=== PATIENT | female | born 1970 | race Hispanic/Latino ===

== ENCOUNTER 2021-03-20 16:42 | Emergency (ER) | payer OTHER, SELFPAY ==
[2021-03-20 16:56] VITALS: BP 151/95; PULSE 76; RESP 16; TEMP 36.4; O2SAT 99
--- NOTE | 2021-03-20 17:13 | ED.EAR ---
HPI - Ear Problem General Chief complaint: Ear Stated complaint: Bilateral Ear Pain History of Present Illness HPI Narrative: This is a 50 year that has been complaining of pain for bilateral ear pain and pressure.l Patient denies any nausea and or vomiting not dizziness. Patient states that she has been using afrin and allergy medication . Patient states she has been taking Benadryl as well. Patient has a headache. Related Data Home Medications Medication Instructions Recorded Confirmed amlodipine 10 mg PO DAILY 03/20/21 03/20/21 atorvastatin 20 mg PO DAILY 03/20/21 03/20/21 escitalopram oxalate 5 mg PO DAILY 03/20/21 03/20/21 hydrochlorothiazide 25 mg PO DAILY 03/20/21 03/20/21 Allergies Allergy/AdvReac Type Severity Reaction Status Date / Time No Known Allergies Allergy Mild Verified 03/20/21 16:49 Review of Systems Review of Systems: bilateral ear pain and pressure All systems reviewed & are unremarkable except as noted in HPI and below PMFSH Comments At time as signature, I have reviewed and agree with nursing past medical, social, surgical and family history. Please see nursing chart for further information. There is no relevant family history pertinent to the presenting complaint. Exam Narrative: GENERAL:Well-appearing, well-nourished, and in no acute distress. HEAD:Normocephalic, . EYES: PERRLA ENT: Nares clear, no rhinorrhea o bilateral ear fluid noted behind hear more in the left than the right the left is cloudy . Boggy turbinate noted in the nares CHEST: No respiratory distress. HEART: Regular rate and rhythm Normal peripheral pulses. EXTREMITIES: Normal range of motion. No edema. SKIN: Warm, dry, no rash. NEURO: No focal deficits. Alert and oriented x3. Course Vital Signs Vital signs: Vital Signs Temperature 97.6 F 03/20/21 16:56 Pulse Rate 76 03/20/21 16:56 Respiratory Rate 16 03/20/21 16:56 Blood Pressure 151/95 H 03/20/21 16:56 Pulse Oximetry 99 03/20/21 16:56 Temperature 97.6 F 03/20/21 16:56 Pulse Rate 76 03/20/21 16:56 Respiratory Rate 16 03/20/21 16:56 Blood Pressure 151/95 H 03/20/21 16:56 Pulse Oximetry 99 03/20/21 16:56 Medical Decision Making Vital Signs Vital Signs: Vital Signs Temperature 97.6 F 03/20/21 16:56 Pulse Rate 76 03/20/21 16:56 Respiratory Rate 16 03/20/21 16:56 Blood Pressure 151/95 H 03/20/21 16:56 Pulse Oximetry 99 03/20/21 16:56 Temperature 97.6 F 03/20/21 16:56 Pulse Rate 76 03/20/21 16:56 Respiratory Rate 16 03/20/21 16:56 Blood Pressure 151/95 H 03/20/21 16:56 Pulse Oximetry 99 03/20/21 16:56 Discharge Plan Discharge Clinical Impression: Rhinosinusitis Otitis media Qualifiers: Otitis media type: unspecified Chronicity: subacute Qualified Code(s): H66.90 - Otitis media, unspecified, unspecified ear Patient Disposition: Home, Self-Care Condition: Stable Instructions: Antibiotic Form, Ear Infection (ED), Rhinosinusitis (ED), Chronic Hypertension (ED), Earache (ED) Additional Instructions: Do not take Afrin at this time Zyrtec need to only be taken as needed for drainage Your blood pressure was elevated in the clinic today, Please BELLA schedule a followup visit with your personal physician with in the next 1-4 weeks for further evaluation and treatment. Also, ask your personal physician to assist you regarding blood pressure. Even blood pressure exceeding 120/80 may indicate pre-hypertension. If your symptoms persist, change or worsen significantly before you can contact your personal physician then please, without delay, go to the emergency department for further evaluation. Prescriptions: New amoxicillin 500 mg capsule 500 mg PO Q12H 10 Days Qty: 20 RF: 0 Zyrtec 10 mg tablet,disintegrating 10 mg PO DAILY PRN (Reason: allergy symptoms) Qty: 30 RF: 0 No Action atorvastatin 20 mg tablet 20 mg PO DAILY RF: 0 amlodipine 10 mg tabl
== END 2021-03-20 17:20 | disposition home or self-care (01) ==
PROVIDERS: Emergency Provider Nurse Practitioner Family; PCP Family Medicine
DX: J31.0 Chronic rhinitis (principal); J32.9 Chronic sinusitis, unspecified; H66.90 Otitis media, unspecified, unspecified ear
CPT/HCPCS: 99213; G0463

== ENCOUNTER 2021-10-09 12:30 | Outpatient (RCR) | payer OTHER, SELFPAY ==
--- NOTE | 2021-09-10 10:04 | PTOPEVAL ---
PHYSICAL THERAPY EVALUATION AND PLAN OF CARE 09-10-21 Thank you for referring Alcira Sorensen to [facility] [place] for vestibular therapy. She is scheduled to be seen for therapy? 0-1 x/week for 5 weeks, depending upon the severity of her symptoms. Please review, sign, date and return this plan of care BELLA. I agree with and certify that the following plan of care is medically necessary. Referring Physician Date Attending Provider: Moris Carrero MD Past Medical History Source of Past Medical History Recalled from Previous Visit, Confirmed with Patient/Family Neurological History Hx Neurological Disorders No Significant History Cardiovascular History Hx Hypertension Yes: meds Respiratory History Hx Other Respiratory Disorders Yes: allergies; Gastrointestinal History Hx Gastrointestinal Disorders No Significant History Genitourinary History Hx Genitourinary Disorders No Significant History Musculoskeletal History Hx Back Pain Yes: chronic Hematological History Hx Hematological Disorders No Significant History Endocrine History Hx Endocrine Disorders No Significant History HEENT History Hx Sinus Problems Yes Integumentary History Hx Skin Disorders No Significant History Reproductive History Hx Endometriosis Yes: endometrial ablation Hx Post Menopausal Yes Hx Other Reproductive Disorders Yes: right ovary removed 2000 Psychosocial History Hx Psychiatric Disorders No Significant History Pain History History of Any Previous or Ongoing No Significant History Instance of Pain Anesthesia History Hx Anesthesia Reactions No Significant History Evaluation Information Diagnosis vestibular therapy Onset Feb 2021 Prior Level of Function Activity Level (Last 3 Months) Occupation social media executive Activity of Daily Living Ability Independent Indoor/Home Mobility Independent Community Mobility Independent Stairs Ability Independent Functional Cognition (Planning, Shopping Independent , Taking Medications) Cooking Yes Cleaning Yes Laundry Yes Shopping Yes Driving Yes Comments Additional Prior Level of Function decreased working out for Comments fitness due to dizziness; able to do all home and work tasks, increase dizziness Pain Assessment Timing of Pain Assessment Timing of Pain Assessment Assessment Self Report Self Report Pain Level 0 Pain Score Pain Score 0: Self Report Vestibular Evaluation Past Vestibular History Back Pain,Infection,Sinus/
--- NOTE | 2021-09-25 14:07 | PCPTNOTE ---
pt called and canceled due to COVID exposure;
--- NOTE | 2021-10-15 10:49 | PCPTNOTE ---
PHYSICAL THERAPY DISCHARGE 10-15-21 Attending Provider: Moris Carrero MD Patient:Alcira Sorensen Date of :1970 Alcira has received 3 PT sessions, from September 10 to for the diagnosis of dizziness. At the last session, she did not have any further vestibular issues, therefore she will be discharged at this time. The goals were achieved. Thank you for referring this patient to [facility]. Please review, sign, date and return this discharge summary BELLA. I have been updated about the patient's current status and I agree with discharge from the above service at this time. Referring Physician Date
== END 2021-10-15 15:04 | disposition home or self-care (01) ==
LOC: ANHPT 12:30
PROVIDERS: PCP Family Medicine; Visit Provider Otolaryngology
DX: R42 Dizziness and giddiness (principal)
CPT/HCPCS: 97110; 97112; 97161; 97530

== ENCOUNTER 2023-06-09 14:56 | Emergency (ER) | payer OTHER, SELFPAY ==
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
[2023-06-09 14:59] VITALS: BP 136/93; PULSE 79; RESP 16; TEMP 37.2; O2SAT 99
[2023-06-09 15:09] VITALS: BP 143/97; PULSE 71; RESP 18; O2SAT 100
[2023-06-09 15:10] VITALS: PULSE 70; RESP 12; O2SAT 100
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
[2023-06-09] MEDS: ACETAMINOPHEN 500 MG TABLET 1000 MG PO (15:24)
[2023-06-09 15:27] LABS: Basophils Absolute Auto 0.1 K/mm3 (0.0-0.1); Basophils Percent Auto 0.8 % (0.2-1.2); Eosinophils Absolute Auto 0.2 K/mm3 (0-0.3); Eosinophils Percent Auto 1.5 % (0-4.4); Hematocrit 38.7 % (37.0-47.0); Hemoglobin 13.9 g/dL (12.0-15.0); Immature Granulocyte Absolute 0.03 K/mm3 (0.00-0.031); Immature Granulocyte Percent A 0.3 % (0-0.5); Lymphocytes Absolute Auto 2.09 K/mm3 (0.9-3.2); Lymphocytes Percent Auto 19.2 % (18.3-44.2); Mean Corpuscular HGB Conc 35.9 g/dl (32-36); Mean Corpuscular Hemoglobin 30.8 pg (26-34); Mean Corpuscular Volume 85.6 fl (80-100); Mean Platelet Volume 8.3 fl (7.4-10.4); Monocytes Percent Auto 9.5 % (2.6-8.5); Neutrophils Absolute Auto 7.5 K/mm3 (1.3-6.7); Neutrophils Percent Auto 68.7 % (45.5-73.1); Platelet Count Result 414 k/mm3 (150-375); Red Blood Count 4.52 M/mm3 (4.2-5.4); Red Cell Distribution Width 11.6 % (11.5-14.5); White Blood Count 10.9 K/mm3 (4.5-10.0)
[2023-06-09 15:38] LABS: Alanine Aminotransferase 31 U/L (6-35); Albumin Level 4.9 g/dL (3.5-5.1); Alkaline Phosphatase 78 U/L (38-126); Anion Gap 9 mmol/L (8-16); Aspartate Amino Transferase 35 U/L (14-36); Bilirubin,Total 0.8 mg/dL (0.2-1.3); Blood Urea Nitrogen 10 mg/dL (7-17); Calcium 10.2 mg/dL (8.4-10.2); Carbon Dioxide 27 mmol/L (22-30); Chloride 92 mmol/L (98-107); Estimated CRCL calculation 84 ml/min; Estimated Glomerular Filt Rate > 60; Glucose 121 mg/dL (65-110); Potassium 3.3 mmol/L (3.4-5.0); Sodium 128 mmol/L (137-145)
[2023-06-09] MEDS: KCL 20 MEQ/SW 100 ML 100 ML 50 MEQ IVPB (16:00)
[2023-06-09] MEDS: SODIUM CHLORIDE 0.9% IV 1,000 ML 999 ML IV CONT ×2 (16:00→17:02)
[2023-06-09 16:02] VITALS: PULSE 62; RESP 17; O2SAT 100
[2023-06-09 16:56] VITALS: PULSE 65; RESP 12; O2SAT 100
[2023-06-09 18:36] VITALS: BP 122/73; PULSE 76; RESP 17; TEMP 36.8; O2SAT 100
== END 2023-06-09 18:38 | disposition home or self-care (01) ==
PROVIDERS: Emergency Provider Physician Assistant; PCP Family Medicine
DX: S05.11XA Contusion of eyeball and orbital tissues, right eye, initial encounter (principal); S10.93XA Contusion of unspecified part of neck, initial encounter; E87.1 Hypo-osmolality and hyponatremia; Y04.8XXA Assault by other bodily force, initial encounter
CPT/HCPCS: 36415; 70450; 70486; 70498; 80053; 83735; 85025; 96361; 96365; 96366; 99284; A9270; J3480; J7030; Q9967